=== PATIENT | female | born 1995 | race Caucasian/White ===

== ENCOUNTER 2023-12-03 19:31 | Emergency (ER) | payer MEDICAID, SELFPAY ==
[2023-12-03 19:36] VITALS: BP 142/97
[2023-12-03 19:53] LABS: % Basophils 0.2 % (0-2); % Eosinophils 1.3 % (0-6); % Immature Granulocytes 0.4 % (0-0.5); % Lymphocytes 17.4 % (20.5-51.1); % Monocytes 4.1 % (1.7-9.3); % Neutrophils 76.6 % (42.2-75.2); Absolute Eosinophils 0.2 10^3/uL (0-0.7); Absolute Immature Granulocytes 0.1 10^3/uL (0-0.05); Absolute Lymphocytes 2.4 10^3/uL (1.2-3.4); Absolute Monocytes 0.6 10^3/uL (0.1-0.6); Absolute Neutrophils 10.5 10^3/uL (1.4-6.5); Hematocrit 28.2 % (37.0-47.0); Hemoglobin 9.8 g/dL (12.0-16.0); Mean Corp Hgb Conc. 34.8 g/dL (33.0-37.0); Mean Corpuscular Hgb 31.9 pg (27.0-31.0); Mean Corpuscular Volume 91.9 fL (81.0-99.0); Mean Platelet Volume 9.8 fL (7.4-10.4); Nucleated Red Blood Cells % 0 %; Platelet Count 227 10^3/uL (130-400); Red Blood Cell Count 3.07 10^6/uL (4.20-5.40); Red Cell Dist. Width 12.4 % (11.5-14.5); White Blood Cell Count 13.7 10^3/uL (4.8-10.8)
[2023-12-03 20:13] LABS: ALT (SGPT) 30 U/L (0-35); AST (SGOT) 38 U/L (14-36); Albumin 3.9 g/dl (3.5-5.0); Alkaline Phosphatase 94 U/L (38-126); Blood Urea Nitrogen 10 mg/dl (7-17); Calcium 9.7 mg/dl (8.4-10.2); Carbon Dioxide 24 mmol/L (22-30); Chloride 106 mmol/L (98-107); Glucose 105 mg/dl (70-99); Potassium 4.5 mmol/L (3.5-5.1); Sodium 143 mmol/L (135-145); Total Bilirubin 0.5 mg/dl (0.2-1.3); Total Protein 6.5 g/dl (6.3-8.2); eGFR > 60.00
--- NOTE | 2023-12-03 21:13 | ED.GENMED ---
History of Present Illness
<Halie Thomas NP - Last Filed: 12/05/23 22:38>
General
Chief Complaint: Breast Problem
Source: patient
Exam Limitations: none
Time Seen by Provider: 12/03/23 21:01
Nursing documentation reviewed up to this point in time: agreed with
History of Present Illness
History of Present Illness:
Patient is 3 days . Does not want to breast feed, reports having some difficulties over the weekend getting baby to feed. No exclusively formula. Comes to ED today with bilateral breast pain. States she is taking ibu without
improvement. TO ED accompanied by spouse for eval. Csection at [facility]
Past History
<Halie Thomas NP - Last Filed: 12/05/23 22:38>
Past History
ED Past Medical History: None
ED Past Surgical History:
Review of Systems
<Halie Thomas NP - Last Filed: 12/05/23 22:38>
Review of Systems
Allergies reviewed?: Yes
All Other Systems: ROS reviewed and negative except as documented in HPI and ROS
Constitutional: Reports no symptoms
EENT: Reports no symptoms
Respiratory: Reports no symptoms
Cardiac: Reports no symptoms
ABD/GI: Reports no symptoms
Musculoskeletal: Reports no symptoms
Skin: Reports other (Bilateral breast engorgement. Erythema surrounding both areola. Both breasts painful, taut)
Neurological: Reports no symptoms
Psychiatric: Reports no symptoms
Phy Exam
<Halie Thomas NP - Last Filed: 12/05/23 22:38>
General Physical Exam
General Presentation: well appearing and mild distress
General age: appears stated age
General Skin: warm and dry
General Habitus: normal
General Mental: alert
General Hydration: appears well hydrated
Musculoskeletal Exam
Musculoskeletal Exam: full ROM
Skin Exam
Skin Exam: other (Bilateral breast engorgement. Erythema surrounding bilateral aereola. bilateral swelling.)
Psychiatric Exam
Psychiatric Exam: normal mood/affect
Course
<Halie Thomas NP - Last Filed: 12/05/23 22:38>
Orders/Labs/Results
Orders:
Orders
12/03/23 19:48
Complete Blood Count/With Diff Urgent
Comprehensive Metabolic Panel Urgent
12/03/23 21:52
Oxycodone [Roxicodone] 10 mg PO NOW STA
12/03/23 21:59
Pseudoephedrine [Sudafed] 30 mg PO NOW STA
Abnormal Lab Results
12/03/23
19:48
WBC 13.7 H 10^3/uL
(4.8-10.8)
RBC 3.07 L 10^6/uL
(4.20-5.40)
Hgb 9.8 L g/dL
(12.0-16.0)
Hct 28.2 L %
(37.0-47.0)
MCH 31.9 H pg
(27.0-31.0)
Abs Immat Gran (auto) 0.1 H 10^3/uL
(0-0.05)
Absolute Neuts (auto) 10.5 H 10^3/uL
(1.4-6.5)
Neutrophils % 76.6 H %
(42.2-75.2)
Lymphocytes % 17.4 L %
(20.5-51.1)
Creatinine 0.5 L mg/dL
(0.6-1.0)
Glucose 105 H mg/dl
(70-99)
AST 38 H U/L
(14-36)
12/03/23 19:48
12/03/23 19:48
Vital Signs
Initial and Last Documented VS:
Initial Vital Signs
Temp Pulse Resp BP Pulse Ox
99.7 F 119 18 142/97 98
12/03/23 19:36 12/03/23 19:36 12/03/23 19:36 12/03/23 19:36 12/03/23 19:36
Last Documented Vital Signs
Temp Pulse Resp BP Pulse Ox
99.7 F 119 18 123/81 98
12/03/23 19:36 12/03/23 19:36 12/03/23 19:36 12/03/23 22:24 12/03/23 19:36
<ANGELIC Gong - Last Filed: 12/04/23 02:06>
Orders/Labs/Results
Orders:
Orders
12/03/23 19:48
Complete Blood Count/With Diff Urgent
Comprehensive Metabolic Panel Urgent
12/03/23 21:52
Oxycodone [Roxicodone] 10 mg PO NOW STA
12/03/23 21:59
Pseudoephedrine [Sudafed] 30 mg PO NOW STA
Abnormal Lab Results
12/03/23
19:48
WBC 13.7 H 10^3/uL
(4.8-10.8)
RBC 3.07 L 10^6/uL
(4.20-5.40)
Hgb 9.8 L g/dL
(12.0-16.0)
Hct 28.2 L %
(37.0-47.0)
MCH 31.9 H pg
(27.0-31.0)
Abs Immat Gran (auto) 0.1 H 10^3/uL
(0-0.05)
Absolute Neuts (auto) 10.5 H 10^3/uL
(1.4-6.5)
Neutrophils % 76.6 H %
(42.2-75.2)
Lymphocytes % 17.4 L %
(20.5-51.1)
Creatinine 0.5 L mg/dL
(0.6-1.0)
Glucose 105 H mg/dl
(70-99)
AST 38 H U/L
(14-36)
12/03/23 19:48
12/03/23 19:48
Vital Signs
Initial and Last Documented VS:
Initial Vital Signs
Temp Pulse Resp BP Pulse Ox
99.7 F 119 18 142/97 98
12/03/23 19:36 12/03/23 19:36 12/03/23 19:36 12/03/23 19:36 12/03/23 19:36
Last Documented Vital Signs
Temp Pulse Resp BP Pulse Ox
99.7 F 119 18 123/81 98
12/03/23 19:36 12/03/23 19:36 12/03/23 19:36 12/03/23 22:24 12/03/23 19:36
<ANGELIC Gong - Last Filed: 12/04/23 02:06>
MDM/Problems Addressed
MDM/Problems Addressed:
I did not evaluate/treat this pt , Niall Matthew [employer]
<ANGELIC Gong - Last Filed: 12/04/23 02:06>
*Critical Care Note
Total Time (30-74mins, 75-104mins- exclusive of procedures): Not Applicable
<Halie Thomas NP - Last Filed: 12/05/23 22:38>
Update Note
Update Note:
Spoke with Karina in L&D regarding patient and treatment options. Using language line, discussed breast engorgement and treatment. Encouraged use of sports bra, coldpacks, ibuprofen, avoidance of breast stimualation, close follow up with OB.
Patient given dose of pain med and pseudophed in dept. SHe is discharged hoem and will follow up with OB in AM.
ED Attending Note
<ANGELIC Gong - Last Filed: 12/04/23 02:06>
-
Portions of this chart may have been created with voice recognition software.� Occasional wrong word or��sound alike� substitutions may have occurred due to the inherent limitations of voice recognition software.
Discharge Plan
Departure
Patient Disposition: Home (Routine Discharge)
Date of Disposition: 12/03/23
Time of Disposition: 21:56
Patient with high blood pressure during this ER visit?: No
Condition: Good
Covid-19: Not Applicable
Discharge Problem:
Engorgement of breast
Instructions: Common problems, Oxycodone, Using Cold for Pain
Prescriptions:
New
oxycodone 10 mg tablet
10 mg PO Q4H PRN (Reason: Pain) Qty: 10 0RF
pseudoephedrine HCl 60 mg tablet
60 mg PO Q4H PRN (Reason: breast engorgement) Qty: 12 0RF
Referrals:
César Vasquez MD [Family Provider] -
Activity Restrictions/Additional Instructions:
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
Interventions
Interventions:
*Risk Screen - Suicide Last Done: 12/03/23 19:36
*General Assessment Last Done: 12/03/23 19:36
*Neglect/Abuse Screening Last Done: 12/03/23 19:36
ED- Fall Risk Assessment Last Done: 12/03/23 21:01
*ED COVID-19 Vaccine History Last Done: 12/03/23 21:01
*Nursing Disposition Last Done: 12/03/23 22:24
ED-Skin Assessment Last Done: 12/03/23 21:01
Discharge Date and Time
Discharge Date/Time: 12/03/23 22:32
Print Language: Beninese
[2023-12-03] MEDS: SUDAFED 30 MG PO (22:15)
[2023-12-03] MEDS: ROXICODONE 10 MG PO (22:15)
[2023-12-03 22:24] VITALS: BP 123/81
== END 2023-12-03 22:32 | disposition home or self-care (01) ==
LOC: EMR 19:31
PROVIDERS: EMERGENCY PHYSICIAN Emergency Medicine; FAMILY PHYSICIAN Family Medicine
DX: N64.59 Other signs and symptoms in breast (principal)
CPT/HCPCS: 99283; 80053; 85025

== ENCOUNTER 2024-11-18 13:22 | Emergency (ER) | payer OTHER, SELFPAY ==
[2024-11-18 13:38] VITALS: BP 132/80
--- NOTE | 2024-11-18 15:08 | ED.SKININJ ---
HPI-Injury
General
Chief Complaint: Skin Surface Trauma
Source: patient
Exam Limitations: none
Time Seen by Provider: 11/18/24 14:21
History of Present Illness-Injury
Initial Injury comments:
29-year-old female presents with laceration to right hand sustained today. She was washing a glass and the glass broke and cut her hand. She is right-hand dominant. No other complaints. She denies numbness or tingling or loss of function.
Past History
Past History
ED Past Medical History: None
ED Past Surgical History:
Phy Exam
Physical Exam
Physical Exam:
General: Well-appearing female no acute respiratory distress
HEENT: Normal cephalic atraumatic
Skin: 1.5 cm laceration dorsal aspect right hand MCP joint index finger. No tendon involvement. She has full extension and full strength in extension of the MCP joint. She is able to abduct and adduct her fingers. There is mild surrounding
ecchymosis and swelling
Neurologic exam: Good sensation right hand and fingers
Course
Vital Signs
Initial and Last Documented VS:
Initial Vital Signs
Temp Pulse Resp BP Pulse Ox
98.0 F 88 16 132/80 98
11/18/24 13:38 11/18/24 13:38 11/18/24 13:38 11/18/24 13:38 11/18/24 13:38
Last Documented Vital Signs
Temp Pulse Resp BP Pulse Ox
98.0 F 88 16 132/80 98
11/18/24 13:38 11/18/24 13:38 11/18/24 13:38 11/18/24 13:38 11/18/24 13:38
MDM/Problems Addressed
Differential Diagnosis Includes:
Laceration right hand without evidence of tendon or vascular involvement. The wound was cleansed with saline and anesthetized with 1% plain lidocaine. The wound was then irrigated again and closed with 5-0 Prolene sutures in a simple interrupted
fashion. A total of 3 sutures were required to do so.
Dressing applied, stable for d/c with wound care instructions.
*Pulse Oximetry
SaO2: 98
Oxygen Mode of Delivery: Room air
Patient hypoxic: no
*Critical Care Note
Total Time (30-74mins, 75-104mins- exclusive of procedures): Not Applicable
ED Attending Note
-
Portions of this chart may have been created with voice recognition software.� Occasional wrong word or��sound alike� substitutions may have occurred due to the inherent limitations of voice recognition software.
Discharge Plan
Departure
Patient Disposition: Home (Routine Discharge)
Date of Disposition: 11/18/24
Time of Disposition: 15:10
Patient with high blood pressure during this ER visit?: No
Discharge Problem:
Laceration
Instructions: Laceration Repair With Stitches (DC)
Prescriptions:
No Action
oxycodone 10 mg tablet
10 mg PO Q4H PRN (Reason: Pain) Qty: 10 0RF
pseudoephedrine HCl 60 mg tablet
60 mg PO Q4H PRN (Reason: breast engorgement) Qty: 12 0RF
Activity Restrictions/Additional Instructions:
Keep clean. Have sutures removed in 10 to 12 days. Ice for swelling. Use Tylenol for pain
Interventions
Interventions:
*Risk Screen - Suicide Last Done: 11/18/24 13:38
*General Assessment Last Done: 11/18/24 14:01
*Neglect/Abuse Screening Last Done: 11/18/24 13:38
*ED- Fall Risk Assessment Last Done: 11/18/24 14:01
*ED COVID-19 Vaccine History Last Done: 11/18/24 14:01
ED-Skin Assessment Last Done: 11/18/24 14:00
Discharge Date and Time
Print Language: Fijian
== END 2024-11-18 15:36 | disposition home or self-care (01) ==
LOC: EMR 13:22
PROVIDERS: EMERGENCY PHYSICIAN Emergency Medicine; FAMILY PHYSICIAN Family Medicine
DX: S61.411A Laceration without foreign body of right hand, initial encounter (principal); W25.XXXA Contact with sharp glass, initial encounter
CPT/HCPCS: 12001; 99282